=== PATIENT | male | born 1980 | race Caucasian/White ===

== ENCOUNTER 2016-05-03 00:32 | Emergency (ER) | payer BC ==
[2016-05-03 00:49] VITALS: TEMP 98; BMI 35.6
[2016-05-03 01:11] LABS: AUTOMATED LYMPH 41.4 % (17-44); AUTOMATED MONOCYTE 8.8 % (3-10); AUTOMATED NEUTROPHIL 46.8 % (45-76); MPV 8.7 fL (7.4-10.4)
[2016-05-03 01:54] LABS: BLOOD UREA NITROGEN 16 MG/DL (9-20); CALCIUM 9.3 MG/DL (8.4-10.2); CALCULATED OSMOLALITY 274 MOs/Kg (270-290); CHLORIDE 105 mEq/L (98-107); GLUCOSE 105 MG/DL (70-99); SODIUM LEVEL 142 mEq/L (137-146)
--- NOTE | 2016-05-03 02:41 | EDPRACDOC ---
- General Information Chief Complaint: Bleeding (Rectal &/or other) Stated Complaint: BLOOD IN STOOL Time Seen by Provider: 05/03/16 02:31 Information Source: Patient Mode of Arrival: Car Home Medications: Home Medications Cyclobenzaprine HCl [Flexeril] 10 mg PO BID PRN 07/26/15 Oxycodone Immediate Release [Oxycodone Immediate Release (OxyIR)] 5 mg PO Q4H PRN 07/26/15 Hydrocortisone [Anusol Hc] [address] BID PRN #12 supp 05/03/16 Allergies/Adverse Reactions: Allergies Allergy/AdvReac Type Severity Reaction Status Date / Time sodium fluoride Allergy Severe Hives* Verified 05/03/16 00:49 [From Thera-Flur] - History of Present Illness Onset: tonight HPI: Pt c/o BRBPR intermittently x 1 month. Denies abd pain, n/v, changes in bowel or bladder. Pt states hard stools. Bleeding Duration: Reports: Since Onset Bleeding Description: Reports: Spontaneous Recent Use Of: Reports: None Relevant History: Reports: None Pain Severity: Moderate Amount of Blood: Reports: Cups Vomitus: Reports: None Stools: Reports: Bright Red Blood Associated Signs and Symptoms: Reports: None ED Past Medical History - History Reviewed Yes Nurses notes reviewed and agree except as marked - Patient Medical History Musculoskeletal History: Reports: Arthritis Psychological History: Denies: Depression Surgical History: Reports: Appendectomy - Family Medical History Reports: Hypertension (PARENTS), Diabetes (GRANDFATHER) - Social Medical History Smoking Status: Heavy tobacco smoker (5 or more cigarettes/day or daily pipe/ cigar) Social History: Denies: Amphetamine Use, Barbiturate Use, Benzodiazipine Use, Cocaine Use, Heroin Use, Marijuana Use, Methadone Use, MDMA (Ecstasy) Use ETOH: None Substance Abuse: None EDM Review of Systems - Review of Systems Constitutional: No Symptoms Reported. negative: Fever, Chills, Weakness, Fatigue, Loss of Appetite Respiratory: No Symptoms Reported. negative: Cough, Brassy Cough, Barky Cough, Shortness of Breath, Wheezing, Hemoptysis Cardiovascular: No Symptoms Reported. negative: Chest Pain, Palpitations, Syncope, Edema, Orthopnea, PND, Skin Mottling, Cyanosis Gastrointestinal: Other (BRBPR). negative: No Symptoms Reported, Constipation, Diarrhea, Formula Intolerance, Melena, Nausea, Pain, Vomiting Genitourinary: No Symptoms Reported. negative: Dysuria, Hematuria, Frequency, Discharge, Bleeding, Testicular Pain, Neurological: No Symptoms Reported. negative: Headache, Dizziness, Seizure, Numbness, Weakness, Speech Difficulty, Gait Difficulty Integumentary: No Symptoms Reported. negative: Itching, Rash, Bruising, Wound Allergic/Immunologic: No Symptoms Reported. negative: Hives, Itching Hematologic: No Symptoms Reported. negative: Lymphadenopathy, Easy Bruising, Easy Bleeding Psychiatric: No Symptoms Reported. negative: Anxiety, Depression, Hallucinations, Insomnia, Suicidal - Physical Exam Constitutional: No apparent distress, Alert Oriented to: Time, Person, Place Last recorded Vital Signs: Last Vital Signs Temp 98 F 05/03/16 00:43 Pulse 84 05/03/16 00:43 Resp 18 05/03/16 00:43 BP 131/85 05/03/16 00:43 Pulse Ox 95 05/03/16 00:43 Oxygen Pulse Oxygen Saturation 95 O2 Device Room Air Oxygen Flow Rate Fraction of Inspired Oxygen ( FIO2) - HEENT Head: Normal ( normocephalic) - Respiratory/Cardiovascular Respiratory: Normal - CTA (BBS clear to auscultation without adventitious sounds ) Cardiovascular: Normal (RRR without murmur, gallop or rub) - GI Auscultation: Normal (NABS) Palpation: Normal (Soft,No rebound or guarding, non distended) Tenderness: Non tender Rectal Exam: Heme positive stool, Hemorrhoids - Musculoskeletal Back: Normal (Non-Tender) Extremities: Normal (Normal tone, Pulses 2+ No cyanosis or edema, FROM) - Integumentary Skin: Normal, Warm, Dry Lymphatics: Normal (no adenopathy) - Neurologic Memory Impaired: Normal Motor Function: Normal (Normal tone, Pulses 2+ No cyanosis or edema, FROM) Mood Description: Normal Perception: Normal - Differential Diagnosis Gastritis, Other (hemorrhoids) - Results 05/03/16 00:56 05/03/16 00:56 WBC 9.5 xk/uL (3.8-10.8) 05/03/16 00:56 RBC 4.99 xM/uL (4.70-6.10) 05/03/16 00:56 Hgb 15.1 g/dL (14.0-18.0) 05/03/16 00:56 Hct 43.8 % (42-52) 05/03/16 00:56 MCV 88 fL (80-94) 05/03/16 00:56 MCH 30.3 pg (27-32) 05/03/16 00:56 MCHC 34.5 g/dl (33-36) 05/03/16 00:56 RDW 13.2 % (11.5-14.5) 05/03/16 00:56 Plt Count 263 xk/uL (130-400) 05/03/16 00:56 MPV 8.7 fL (7.4-10.4) 05/03/16 00:56 Neut % (Auto) 46.8 % (45-76) 05/03/16 00:56 Lymph % (Auto) 41.4 % (17-44) 05/03/16 00:56 Mcculloch % (Auto) 8.8 % (3-10) 05/03/16 00:56 Eos % (Auto) 2.0 % (0-5) 05/03/16 00:56 Baso % (Auto) 1.0 % (0-2) 05/03/16 00:56 Absolute Neuts (auto) 4.37 xk/uL (1.7-8.2) 05/03/16 00:56 Absolute Lymphs (auto) 3.90 xk/uL (0.65-4.75) 05/03/16 00:56 Sodium 142 mEq/L (137-146) 05/03/16 00:56 Potassium 3.7 mEq/L (3.5-5.1) 05/03/16 00:56 Chloride 105 mEq/L (98-107) 05/03/16 00:56 Carbon Dioxide 26 mMOL/L (22-33) 05/03/16 00:56 Anion Gap 15 mEq/L (8-16) 05/03/16 00:56 BUN 16 MG/DL (9-20) 05/03/16 00:56 Creatinine 0.80 MG/DL (0.66-1.25) 05/03/16 00:56 Estimated GFR (MDRD) > 60 mL/min (>=60) 05/03/16 00:56 Glucose 105 MG/DL (70-99) H 05/03/16 00:56 Calculated Osmolality 274 MOs/Kg (270-290) 05/03/16 00:56 Calcium 9.3 MG/DL (8.4-10.2) 05/03/16 00:56 Lab Results 05/03/16 05/03/16 00:56 00:56 WBC 9.5 RBC 4.99 Hgb 15.1 Hct 43.8 MCV 88 MCH 30.3 MCHC 34.5 RDW 13.2 Plt Count 263 MPV 8.7 Neut % (Auto) 46.8 Lymph % (Auto) 41.4 Mcculloch % (Auto) 8.8 Eos % (Auto) 2.0 Baso % (Auto) 1.0 Absolute Neuts (auto) 4.37 Absolute Lymphs (auto) 3.90 Sodium 142 Potassium 3.7 Chloride 105 Carbon Dioxide 26 Anion Gap 15 BUN 16 Creatinine 0.80 Estimated GFR (MDRD) > 60 Glucose 105 H Calculated Osmolality 274 Calcium 9.3 Decision Time to Discharge: 02:41 - Departure Disposition: Home Condition: Good Final Diagnosis: Hemorrhoids Instructions: Hemorrhoids (ED), Rectal Bleeding (ED) Education/Counseling Given To: Patient Education/Counseling Given Regarding: Diagnosis, Treatment, Follow Up Referrals: Fuad Guidry MD [Primary Care Provider] - One Week Prescriptions: Hydrocortisone [Anusol Hc] [address] BID PRN #12 supp PRN Reason: Hemorrhoids Additional Instructions: Increase fiber and fluids. Return for worse or different symptoms.
[2016-05-03 02:58] VITALS: BP 128/85; PULSE 82
== END 2016-05-03 02:56 | disposition home or self-care (01) ==
LOC: ED 00:32
DX: K64.9 Unspecified hemorrhoids (principal); K92.1 Melena
CPT/HCPCS: 36415; 80048; 82270; 85025; 99284